=== PATIENT | female | born 1965 | race Caucasian/White ===

== ENCOUNTER 2020-11-10 13:49 | Emergency (ER) | payer OTHER ==
[2020-11-10 11:20] LABS: BASOPHIL 0.5 % (0-2); BILIRUBIN NEGATIVE (NEGATIVE); BLOOD TRACE-INTACT Ery/uL (NEGATIVE); CLARITY CLEAR (CLEAR); COLOR YELLOW (YELLOW); EOSINOPHIL 2.6 % (0-5); GLUCOSE (U) NORMAL (NORMAL); HGB 14.7 g/dl (12.5-16.0); LEUKOCYTES NEGATIVE Leu/uL (NEGATIVE); LYMPHOCYTE 31.2 % (15-48); MCH 28.9 pg (25.0-31.0); MCV 90.4 fL (78.0-100.0); MONOCYTE 8.2 % (0-12); NEUTROPHIL 57.1 % (41-80); NITRITE NEGATIVE (NEGATIVE); NRBC 0; PLT 280 K/uL (150-400); PROTEIN NEGATIVE (NEGATIVE); RBC 5.09 M/uL (4.20-5.40); RDW 12.5 % (11.5-14.0); SPECIFIC GRAVITY 1.015 (1.001-1.030); UROBILINOGEN 0.2 mg/dL (0.2-1.0); WBC 7.8 K/uL (4.0-10.5)
[2020-11-10 11:32] LABS: BACTERIA 2+; URINARY RBC RARE
[2020-11-10 11:36] LABS: BUN/CREAT RATIO (CALC) 17.7 RATIO; CREATININE 0.79 mg/dL (0.51-0.95)
[~2020-11-10 13:49] MED LIST: COZAAR50 MG PO
== END 2020-11-10 14:36 | disposition home or self-care (01) ==
LOC: FER 13:49
PROVIDERS: Emergency Medicine
DX: R03.0 Elevated blood-pressure reading, without diagnosis of hypertension (principal)
CPT/HCPCS: 36415; 71046; 80048; 81001; 84484; 85025; 87076; 87088; 87186; 93005

== ENCOUNTER 2021-08-23 01:09 | Emergency (ER) | payer OTHER ==
[2021-08-23] MEDS ORDERED: MEDROL 4MG DOSEP4 MG PO (02:44)
== END 2021-08-23 03:10 | disposition home or self-care (01) ==
LOC: FER 01:09
DX: T78.40XA Allergy, unspecified, initial encounter (principal)
CPT/HCPCS: 99282; J7512